=== PATIENT | female | born 1955 | race Caucasian/White ===

== ENCOUNTER 2021-07-22 09:52 | Emergency (ER) | payer MEDICARE, OTHER ==
[~2021-07-22] VITALS: Ht 154.9 cm; Wt 90.7 kg
[~2021-07-22 09:52] MED LIST: ONDA4 PO; OXYACE5T PO; PRAV20 PO
[2021-07-22] MEDS ORDERED: HYDR1TAB94 PO (11:59)
== END 2021-07-22 12:16 | disposition home or self-care (01) ==
LOC: ER 09:52
DX: M16.11 Unilateral primary osteoarthritis, right hip (principal); Z79.899 Other long term (current) drug therapy; Z79.891 Long term (current) use of opiate analgesic; E78.00 Pure hypercholesterolemia, unspecified; F17.200 Nicotine dependence, unspecified, uncomplicated
CPT/HCPCS: 73502; 73562-RT; A9270

== ENCOUNTER 2021-08-19 06:11 | Day surgery (SDC) | payer MEDICARE, OTHER ==
[~2021-08-19] VITALS: Ht 157.5 cm; Wt 86.3 kg
[~2021-08-19 06:11] MED LIST changes: +HYDR1TAB94 PO; +Neurontin 100100 MG PO; +VENL75ER PO
--- NOTE | 2021-08-19 07:26 | NUR ---
Ambulatory in Day Surgery. History, Chart, Medications and Allergies reviewed before start of procedure.Lungs clear T/O to Auscultation. Patient confirms NPO status and agrees with scheduled surgery. Pre-Op teaching done. Pt verbalizes understanding.
--- NOTE | 2021-08-19 08:09 | NUR ---
08/19/21 0809 Kash Quinn PT TO OR, PLACED UNDER GENERAL ANESTHESIA. ANCEF 2G 0748 TO LEFT AC. MD CALLED WHEN PT FOUND TO HAVE RASH IN GROIN AREA. PER MD CASE WAS CANCELED. PT AWOKEN AND TAKEN TO RECOVERY.
--- NOTE | 2021-08-19 09:11 | NUR ---
Patient up to Ambulate independently. Gait steady. Discharge instructions reviewed with patient. Patient verbalizes understanding. Copy given to patient to take home. Patient States Post-Procedure ride home has been arranged with friend Yue. Discharged via wheelchair to private car for ride home.
== END 2021-08-19 09:20 | disposition home or self-care (01) ==
LOC: ORSCMMR 06:11 → ORD 07:30 → ORSCMMR 07:30
PROVIDERS: Orthopaedic Surgery
PROC: 0SR90JZ Replacement of Right Hip Joint with Synthetic Substitute, Open Approach (ICD-10-PCS; principal; 2021-08-19 07:30)
DX: M16.11 Unilateral primary osteoarthritis, right hip (principal); Z53.9 Procedure and treatment not carried out, unspecified reason; Z87.891 Personal history of nicotine dependence; E78.5 Hyperlipidemia, unspecified
CPT/HCPCS: A9270; J0171; J0690; J0735; J1100; J1885; J2250; J2405; J2704; J2795; J3010; J7120

== ENCOUNTER 2021-09-30 08:14 | Day surgery (SDC) | payer MEDICARE, OTHER ==
[~2021-09-30] VITALS: Ht 154.9 cm; Wt 83.1 kg
--- NOTE | 2021-09-30 09:26 | NUR ---
History, Chart, Medications and Allergies reviewed before start of procedure. Lungs clear T/O to Auscultation. Pre-Op teaching done. Pt verbalizes understanding.
--- NOTE | 2021-09-30 11:12 | NUR ---
09/30/21 1112 Skylar Orta PRIOR TO PATIENT'S SKIN BEING PREPPED, NOTED REDNESS AND INFLAMMATION PRESENT IN THE GROIN AND PUBIS AREA NOTIFIED.
--- NOTE | 2021-09-30 14:39 | NUR ---
PT ARRIVED TO ROOM 218 AT APPROXIMATELY 1405. PT AWAKE AND ORIENTED BUT DROWSY. PT DENIES PAIN. IV FLUIDS STARTED. PO FLUIDS PROVIDED. INCISION COVERED WITH DERMABOND PRINEO, AND OPEN TO AIR. NO DRAINAGE PRESENT. INCENTIVE SPIROMETER PROVIDED, PT EDUCATED REGARDING USE AND IMPORTANCE; PT DEMONSTRATED USE. CALL LIGHT WITHIN REACH, PT EDUCATED TO USE CALL LIGHT. WILL CONTINUE TO MONITOR.
--- NOTE | 2021-09-30 16:40 | NUR ---
SHIFT SUMMARY PT IS POD#0 FROM [facility] WITH DR. LOPEZ. PAIN MANAGED WITH PO PAIN MEDICATION. SHE WAS ABLE TO WORK WITH PHYSICAL THERAPY AND SIT UP TO THE CHAIR. PT TOLERATING PO. WILL MONITOR UNTIL REPORT TO NENA JAMES.
[2021-10-01 04:34] LABS: BASOPHILS ABSOLUTE AUTO 0.03 K/mm3 (0.00-0.23); BASOPHILS PERCENT AUTO 0 % (0-2); EOSINOPHILS PERCENT AUTO 0 % (0-6); Hematocrit 36.7 % (33.0-51.0); Hemoglobin 11.9 g/dL (11.5-16.0); IMMATURE GRAN ABSOLUTE AUTO 0.04 K/mm3 (0.00-0.10); IMMATURE GRAN PERCENT AUTO 0 % (0-1); LYMPHOCYTES ABSOLUTE AUTO 1.76 K/mm3 (0.84-5.20); LYMPHOCYTES PERCENT AUTO 14 % (21-46); MONOCYTES ABSOLUTE AUTO 1.26 K/mm3 (0.16-1.47); MONOCYTES PERCENT AUTO 10 % (4-13); Mean Corpuscular HGB 34.5 pg (26.0-34.0); Mean Corpuscular HGB Conc 32.4 g/dL (31.5-36.5); Mean Corpuscular Volume 106 fL (80-100); Mean Platelet Volume 10.1 fL (9.1-12.4); NEUTROPHILS ABSOLUTE AUTO 9.77 K/mm3 (1.96-9.15); NEUTROPHILS PERCENT AUTO 76 % (41-73); Platelet Count 271 K/mm3 (150-400); RDW Coefficient Variation 15.7 % (11.7-14.2); RDW Standard Deviation 60.6 fL (35.1-46.3); Red Blood Cell Count 3.45 M/mm3 (3.80-5.20); White Blood Cell Count 12.86 K/mm3 (4.00-11.30)
[2021-10-01 04:49] LABS: Bun/Creatinine Ratio 17.9 (12.0-20.0); Calcium, Blood 8.4 mg/dL (8.5-10.1); Creatinine, Blood 0.73 mg/dL (0.40-1.00)
--- NOTE | 2021-10-01 06:01 | NUR ---
SHIFT SUMMARY POD1 [facility] ANTERIOR APPROACH WITH DR. LOPEZ. PT REPORTS MILD- MOD PAIN T/O SHIFT. PAIN MANAGED WITH TORADOL, TYLENOL AND ROXICODONE. AMBULATES IN THE HALLWAY BEFORE BED AND THIS MORNING. PT APPEARS TO BE STEADY, DENIES NUMBNESS, TINGLING SENSATION AND DIZZINESS. VSS. PT TOLERATES PO INTAKE DENIES N/V. ABX GIVEN LAST NIGHT. SALINE LOCKED. VOIDING WITHOUT ISSUES. PRINEO DRESSING ON R HIP APPEARS TO CDI. POLAR PACK IN PLACED. SCD'S. USE CALL LIGHT. CALL LIGHT WITHIN REACH. WILL CONTINUE TO MONITOR AND WILL PROVIDE REPORT TO ONCOMING NURSE.
--- NOTE | 2021-10-01 07:15 | NUR ---
RECVD REPORT FROM PREVIOS SHIFT RN, PT SITTING UP IN RECLINER, AWAKE/ORIENTED/PLEASANT. PT DENIES PAIN, HAS VOIDED, VSS, DENIES N/V. PT WILL CALL CAREGIVER/THERAPY CHAINSTITCH ZIPPER SETTER TO BE HERE FOR THIS MORNING'S THERAPY SESSION
[2021-10-01] MEDS ORDERED: ACET500 PO (09:19)
[2021-10-01] MEDS ORDERED: OXYC5 PO (09:20)
[2021-10-01] MEDS ORDERED: ASPI81CH PO (09:58)
--- NOTE | 2021-10-01 10:26 | NUR ---
provided pt with discharge teaching and printed materials. pt and therapy health coach state understanding of instructions. prescriptions sent to [facility] pharmacy by dr Smith office previously. pt's belongings and pt transferred to awaiting vehicle via wheelchair. Peripheral IV removed WNL
== END 2021-10-01 10:25 | disposition home or self-care (01) ==
LOC: ORSCMMR 08:14 → ORD 10:30 → ORSCMMR 10:30 → ORD 11:00 → ORSCMMR 13:30 → SURS 13:55 → ORD 16:30 → ORSCMMR 10-01 10:25
PROVIDERS: Orthopaedic Surgery
PROC: 0SR90JA Replacement of Right Hip Joint with Synthetic Substitute, Uncemented, Open Approach (ICD-10-PCS; principal; 2021-09-30 10:30)
DX: M16.11 Unilateral primary osteoarthritis, right hip (principal); E66.9 Obesity, unspecified; Z68.34 Body mass index [BMI] 34.0-34.9, adult; Z87.891 Personal history of nicotine dependence; Z79.899 Other long term (current) drug therapy; F41.8 Other specified anxiety disorders
CPT/HCPCS: 36415; 72170; 80048; 83735; 85025; 97110; 97116; 97162; 97530; A9270; C1776; J0360; J0690; J1100; J1885; J2270; J2405; J2704; J2710; J3010; J7120

== ENCOUNTER 2021-12-12 11:06 | Day surgery (SDC) | payer MEDICARE, OTHER ==
[~2021-12-12] VITALS: Ht 154.9 cm; Wt 79.8 kg
[~2021-12-12 11:06] MED LIST changes: +ACET500 PO; +ASPI81CH PO; +OXYC5 PO
--- NOTE | 2021-12-12 12:07 | NUR ---
Ambulatory in Day Surgery History, Chart, Medications and Allergies reviewed before start of procedure. Pre-Op teaching done. Pt verbalizes understanding. Patient States Post-Procedure ride home has been arranged.
--- NOTE | 2021-12-12 14:02 | NUR ---
Ambulatory in Day Surgery Discharge instructions reviewed with patient. Patient verbalizes understanding. Copy given to patient to take home. Patient States Post-Procedure ride home has been arranged. Discharged via wheelchair to private car for ride home. ALL BELONGINGS RETURNED TO PATIENT.
== END 2021-12-12 23:21 | disposition home or self-care (01) ==
LOC: ORD 11:06 → ORSCMMR 11:06 → ORD 23:21
PROVIDERS: Orthopaedic Surgery
PROC: 0JBL0ZZ Excision of Right Upper Leg Subcutaneous Tissue and Fascia, Open Approach (ICD-10-PCS; principal; 2021-12-12 13:30)
DX: S71.101A Unspecified open wound, right thigh, initial encounter (principal); Z96.641 Presence of right artificial hip joint; Z87.891 Personal history of nicotine dependence; Z79.899 Other long term (current) drug therapy; E66.9 Obesity, unspecified; Z68.34 Body mass index [BMI] 34.0-34.9, adult
CPT/HCPCS: 87071; 87075; 87077; 87186; 87205; A9270; J0330; J0690; J2001; J2250; J2704; J3010; J7120

== ENCOUNTER 2022-01-29 02:03 | Day surgery (SDC) | payer MEDICARE, OTHER | END 2022-01-29 23:42 | disposition home or self-care (01) | LOC: WOUND 02:03 | DX: T81.32XA Disruption of internal operation (surgical) wound, not elsewhere classified, initial encounter (principal); E66.9 Obesity, unspecified | CPT/HCPCS: A9270; G0463 ==

== ENCOUNTER 2022-02-05 04:12 | Day surgery (SDC) | payer MEDICARE, OTHER | END 2022-02-05 22:57 | disposition home or self-care (01) | LOC: WOUND 04:12 | DX: T81.32XA Disruption of internal operation (surgical) wound, not elsewhere classified, initial encounter (principal); E66.9 Obesity, unspecified; Z96.641 Presence of right artificial hip joint | CPT/HCPCS: 99406; A9270; G0463 ==

== ENCOUNTER 2022-02-12 02:31 | Day surgery (SDC) | payer MEDICARE, OTHER | END 2022-02-12 23:00 | disposition home or self-care (01) | LOC: WOUND 02:31 | DX: T81.31XD Disruption of external operation (surgical) wound, not elsewhere classified, subsequent encounter (principal); M25.50 Pain in unspecified joint; E66.9 Obesity, unspecified; M19.90 Unspecified osteoarthritis, unspecified site; Y83.8 Other surgical procedures as the cause of abnormal reaction of the patient, or of later complication, without mention of misadventure at the time of the procedure; Z96.641 Presence of right artificial hip joint; Z68.33 Body mass index [BMI] 33.0-33.9, adult | CPT/HCPCS: G0463 ==